=== PATIENT | male | born 1980 | race Caucasian/White ===

== ENCOUNTER 2019-06-23 09:58 | Inpatient (IN) | payer OTHER, SELFPAY ==
--- NOTE | 2019-06-23 10:57 | RAD ---
Exam: Left wrist 3 views: HISTORY: Injury Somewhat comminuted fairly markedly displaced vertically oriented fracture through the volar and radi al aspect of the distal radius extending intra-articularly with 0.5 cm of volar displacement. Small chip type fracture of the ulnar styloid process. In addition there is a chip type fracture through the base of the fifth metatarsal extending into the hamate fifth metatarsal joint. There is also a minimally displaced oblique or spiral fracture of the proximal fourth metatarsal shaft. Surgical clips overlie the lateral aspect of the carpal bones. These clips and distal radial fracture somewhat obscures the underlying scaphoid bone. IMPRESSION: Comminuted distal radial fracture with displacement and intra-articular extension. Fractures of the u lnar styloid process, base of the fifth metacarpal, and the fourth metacarpal shaft.
[2019-06-23 12:48] LABS: #Eosinphils 0.1 thou/uL (0.0-0.7); #Lymphocytes 2.7 thou/uL (1.20-3.40); #Monocytes 0.7 thou/uL (0.11-0.59); #Neutrophils 7.3 thou/uL (1.40-6.50); %Basophils 0.4 % (0.0-1.0); %Eosinophils 1.2 % (0.0-10.0); %Lymphocytes 25.1 % (21.0-51.0); %Monocytes 6.2 % (0.0-10.0); Hemoglobin 16.2 g/dL (14.0-18.0); Mean Corpuscular HGB CONC 35.3 g/dL (32.0-36.0); Mean Corpuscular Hemoglobin 31.9 pg (27.0-31.0); Mean Corpuscular Volume 90.2 fL (78.0-98.0); Mean Platelet Volume 9.3 fL (7.4-10.4); Platelet Count 243 thou/uL (130-400); RBC Distribution Width 11.8 % (11.5-14.5); Red Blood Cell (RBC) Count 5.08 mill/uL (4.70-6.10); White Blood Cell (WBC) Count 10.9 thou/uL (4.8-10.8)
[2019-06-23] MEDS ORDERED: Morphine 4 MG/ML VIAL ONE ×2 (12:54→15:57)
[2019-06-23 13:05] LABS: ALT (SGPT) 40 U/L (8-55); AST (SGOT) 21 U/L (5-34); Albumin 4.7 g/dL (3.5-5.0); Alkaline Phosphatase 56 U/L (40-110); Anion Gap 13 mmol/L (10-20); BUN (Urea Nitrogen) 13 mg/dL (8.9-20.6); Bilirubin, Total 0.4 mg/dL (0.2-1.2); Calc. Creatinine Clearance 0 mL/min (70-130); Calcium 10.2 mg/dL (7.8-10.44); Carbon Dioxide 25 mmol/L (22-29); Chloride 102 mmol/L (98-107); Estimated GFR-MDRD 73; Globulin 3.8 g/dL (2.4-3.5); Glucose 90 mg/dL (70-105); Potassium 4.1 mmol/L (3.5-5.1); Protein, Total 8.5 g/dL (6.0-8.3); Sodium 136 mmol/L (136-145)
[2019-06-23] MEDS ORDERED: Ketorolac Tromethamine 30 MG/ML VIAL ONE (14:10)
[2019-06-23 14:11] LABS: PTT 30.6 SEC (22.9-36.1)
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
[2019-06-23] MEDS ORDERED: Promethazine HCl 25 MG/ML VIAL IM PRN ×2 (14:39→21:46)
[2019-06-23] MEDS ORDERED: Morphine 4 MG/ML VIAL SLOW IVP PRN (14:39)
[2019-06-23] MEDS ORDERED: Dextrose 50% Abboject 50 ML SYRINGE SLOW IVP PRN (14:39)
[2019-06-23] MEDS ORDERED: Ondansetron PF 4 MG/2 ML Vial IVP PRN (14:39)
[2019-06-23] MEDS ORDERED: Dextrose 5% in Water 1,000 ML IV PRN (14:39)
[2019-06-23] MEDS ORDERED: hydrALAZINE 20 MG/ML VIAL SLOW IVP PRN (14:39)
[2019-06-23] MEDS ORDERED: Cyclobenzaprine 10 MG TAB PO PRN (15:14)
[2019-06-23] MEDS ORDERED: traMADol HCl 50 MG TAB PO PRN ×3 (15:14→21:46)
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
[2019-06-23] MEDS ORDERED: Bupivacaine PF 0.5% 30 ML VIAL ONE ×2 (17:13→21:23)
[2019-06-23] MEDS ORDERED: Sodium Chloride 0.9% 0 ML ONE (17:13)
[2019-06-23] MEDS ORDERED: Bacitracin Zinc Ointment 30 gm TUBE ONE ×2 (17:13→21:23)
[2019-06-23] MEDS ORDERED: Sodium Chloride 0.9% 10 ML ONE (21:23)
[2019-06-23] MEDS ORDERED: Midazolam HCl 2 mg/2 ml Vial ONE (21:38)
[2019-06-23] MEDS ORDERED: Fentanyl 100 MCG/2 ML VIAL ONE ×2 (21:38→22:04)
[2019-06-23] MEDS ORDERED: HYDROcodone/Acetaminophen 5/325 mg Tablet PO PRN (21:46)
[2019-06-23] MEDS ORDERED: Bisacodyl 10 MG SUPP PR PRN (21:46)
[2019-06-23] MEDS ORDERED: Fentanyl 100 MCG/2 ML VIAL SLOW IVP PRN (21:46)
[2019-06-23] MEDS ORDERED: Morphine 2 MG/ML SYRINGE IVP PRN (21:46)
[2019-06-23] MEDS ORDERED: Milk Of Magnesia 30 ML UDCUP PO PRN (21:46)
[2019-06-23] MEDS ORDERED: Meperidine HCl/PF 25 MG/ML VIAL IM PRN (21:51)
[2019-06-23] MEDS ORDERED: Ketorolac Tromethamine 30 MG/ML VIAL IVP PRN (21:51)
[2019-06-23] MEDS ORDERED: TETANUS AND DIPHTHERIA TOX/PF 0.5 ML DISP.SYRIN IM SCH (22:00)
[2019-06-23] MEDS ORDERED: Ibuprofen 800 MG TAB PO SCH (22:00)
[2019-06-23] MEDS ORDERED: Ketorolac Tromethamine 30 MG/ML VIAL IVP SCH (23:59)
[2019-06-24] MEDS ORDERED: Fentanyl 100 MCG/2 ML VIAL ONE (00:09)
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
[2019-06-24] MEDS ORDERED: HYDROmorphone 2 MG/ML VIAL SLOW IVP PRN (00:57)
[2019-06-24] MEDS ORDERED: Promethazine HCl 25 MG/ML VIAL IM PRN (00:57)
[2019-06-24] MEDS ORDERED: Morphine Sulfate 2 MG/ML SYRINGE SLOW IVP PRN (00:57)
[2019-06-24] MEDS ORDERED: Ketorolac Tromethamine 30 MG/ML VIAL IVP PRN (00:57)
[2019-06-24] MEDS ORDERED: Ondansetron HCl/PF 4 MG/2 ML Vial IVP PRN (00:57)
[2019-06-24] MEDS ORDERED: PACU-Morphine 4MG/ML VIAL SLOW IVP PRN (00:57)
[2019-06-24] MEDS ORDERED: Promethazine HCl 25 MG/ML VIAL SLOW IVP PRN (00:57)
[2019-06-24] MEDS ORDERED: Meperidine HCl/PF 25 MG/ML VIAL SLOW IVP PRN (00:57)
[2019-06-24] MEDS ORDERED: Vancomycin HCl 1 GM in Premix Bag 1 BAG IVPB SCH ×2 (02:15→09:00)
[2019-06-24] MEDS: Sodium Chloride 0.9% 1,000 ML IV SCH ×2 (02:45→06:18)
[2019-06-24 02:59] VITALS: BMI 28.5
[2019-06-24] MEDS: Vancomycin HCl 1.5 GM in Sodium Chloride 0.9% 250 ML 300 ML IVPB SCH ×2 (04:15→12:51)
[2019-06-24 04:44] LABS: Amphetamine Not Detected (NotDetected); Benzodiazepine Screen Not Detected (NotDetected); Cocaine Metabolite Screen Not Detected (NotDetected); Medtox Reader # READER 4; Methadone Not Detected (NotDetected); Methamphetamine Not Detected (NotDetected); Opiate Screen Detected (NotDetected); Phencyclidine (PCP) Not Detected (NotDetected); THC/Cannabinoid Screen Not Detected (NotDetected); Tricyclic Screen Not Detected (NotDetected)
[2019-06-24 04:45] LABS: Barbiturates Screen Not Detected (NotDetected); Medtox Control Line Valid? VALID (VALID); Oxycodone Screen Not Detected (NotDetected)
[2019-06-24] MEDS: Acetaminophen 500 MG TAB PO SCH ×2 (06:17→06:49)
[2019-06-24] MEDS: Gabapentin 300 MG CAP PO SCH ×2 (06:17→10:37)
[2019-06-24] MEDS: Famotidine 20 MG TAB PO SCH ×2 (06:17→10:37)
[2019-06-24] MEDS: Senokot S 8.6-50 MG TAB PO SCH ×2 (06:18→10:37)
--- NOTE | 2019-06-24 07:34 | RAD ---
Intraoperative imaging left breast: 06/23/2019 HISTORY: Injury, trauma, surgery FINDINGS: Images demonstrate placement of screws and pins treating the distal radial fracture. Postop erative clips are noted overlying the proximal and distal carpal row laterally. There is a fracture at the tip of the ulnar styloid. There is a fracture involving the base of the fourth and fifth metac arpals. IMPRESSION: Intraoperative imaging as above.
--- NOTE | 2019-06-24 07:57 | RAD ---
LEFT FINGERS 5 VIEWS: HISTORY: Intraoperative films. FINDINGS: This is a series of films that show screw placement across the base of the 5th and the shaft of the 4 th metacarpals. Postop changes of the distal radius and clips over the scaphoid and trapezium are al so noted. IMPRESSION: Postoperative changes of the hand and wrist. POS: DOMITILA
[2019-06-24] MEDS ORDERED: Senokot S 8.6-50 MG TAB PO SCH (09:00)
[2019-06-24] MEDS ORDERED: Famotidine 20 MG TAB PO SCH (09:00)
[2019-06-24] MEDS ORDERED: Gabapentin 300 MG CAP PO SCH (09:00)
[2019-06-24] MEDS ORDERED: Aspirin 81 mg Enteric Coated Tablet PO SCH (09:00)
[2019-06-24] MEDS ORDERED: Polyethylene Glycol 3350 17 GM Packet PO SCH ×2 (09:00)
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
[2019-06-24 11:29] VITALS: BP 111/60; TEMP 98.9
[2019-06-24] MEDS ORDERED: Acetaminophen 500 MG TAB PO SCH (12:00)
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
[2019-06-29] MEDS ORDERED: Ibuprofen 800 MG TAB PO SCH (06:00)
== END 2019-06-24 15:21 | disposition home or self-care (01) | DRG 511 ==
LOC: ERS 09:58 → SDC 19:04 → 3SE 21:46
PROVIDERS: ADMIT Surgery; ATTEND Surgery
PROC: 0PSQ04Z Reposition Left Metacarpal with Internal Fixation Device, Open Approach (ICD-10-PCS; principal; 2019-06-23)
PROC: 0PSJ04Z Reposition Left Radius with Internal Fixation Device, Open Approach (ICD-10-PCS; 2019-06-23)
DX: S62.317A Displaced fracture of base of fifth metacarpal bone, left hand, initial encounter for closed fracture (principal); S52.512A Displaced fracture of left radial styloid process, initial encounter for closed fracture; S52.612A Displaced fracture of left ulna styloid process, initial encounter for closed fracture; S62.325A Displaced fracture of shaft of fourth metacarpal bone, left hand, initial encounter for closed fracture; F41.9 Anxiety disorder, unspecified; F32.9 Major depressive disorder, single episode, unspecified; K21.9 Gastro-esophageal reflux disease without esophagitis; F17.210 Nicotine dependence, cigarettes, uncomplicated; Z88.8 Allergy status to other drugs, medicaments and biological substances; Z90.89 Acquired absence of other organs; V69.9XXA Occupant (driver) (passenger) of heavy transport vehicle injured in unspecified traffic accident, initial encounter
CPT/HCPCS: 25605; 26605; 36415; 71045; 72040; 76000; 80053; 80306; 80307; 85025; 85610; 85730; 86850; 86900; 86901; 93005; 94760; 96361; 96374; 96375; 96376; C1713; G0390; J0131; J1885; J2250; J2270; J3010; J3370; J3490; J7050; S0020

== ENCOUNTER 2019-12-03 11:20 | Outpatient (CLI) | payer OTHER ==
--- NOTE | 2019-12-03 15:50 | MRI ---
MRI OF LEFT WRIST PERFORMED WITHOUT CONTRAST ENHANCEMENT: HISTORY: Patient had wrist surgery in May of 2019 and has been having pain since the time of surgery. FINDINGS: There is artifact related to pin and screw placement which substantially degrades image detail. Shayy fact is particularly pronounced around the region of the distal radius with screw placement in this r egion. On these views, there appears to be an ulna plus variant. I am not certain how much of this is related to the positioning. The triangular fibrocartilage is difficult to assess, but I feel it i s most likely intact. Surgical anchors are seen within the scaphoid and there is artifact near the trapezium. The scapholu adam and lunotriquetral joints are unremarkable. I do not see any definite ligamentous injury. Carpal tunnel region is normal. The extensor tendons are somewhat difficult to assess at the level o f the radius. The ERCB and ERCL tendons appear slightly thickened. Some minimal tenosynovitis beltran e and some minimal edema change and what appears to be some scarring around these tendons. There is what may be a small bony fragment from the dorsal side of the scaphoid in this region, again difficul t to assess. I am not certain if CT would be helpful in assessment of this if patient's pain is spe cifically related to this region. Postop changes of the metacarpal regions are also incidentally seen incompletely imaged on this exam. IMPRESSION: 1. Extensive postop change degrades image quality. Screw placement in the distal radius related to fixation of fracture degrades the imaging quality. I believe the scapholunate and lunotriquetral lig aments are intact. On some of these images, there appears to be an ulnar plus variant. I believe th is may just be more related to positioning. Triangular fibrocartilage is difficult to assess, but on some of these images I feel is probably intact. 2. Suggestion of some slight thickening to the extensor carpi radialis brevis and extensor carpi rad ialis longus tendons at the level of the distal radius and as they pass over the dorsal side of the r egion of the scaphoid. On some of these images, there is a suggestion there may be a small avulsion fracture off the dorsal side of the more proximal aspect of the scaphoid. There are some trace tenos ynovitis changes and some soft tissue edema changes adjacent to the extensor carpi radialis brevis an d extensor carpi radialis longus tendons. POS: C
== END 2019-12-03 11:21 | disposition home or self-care (01) ==
LOC: SCSMRI 11:20
PROVIDERS: ATTEND Orthopaedic Surgery Hand Surgery
DX: S69.82XA Other specified injuries of left wrist, hand and finger(s), initial encounter (principal); Z98.890 Other specified postprocedural states

== ENCOUNTER 2019-12-23 12:12 | Outpatient (CLI) | payer OTHER ==
--- NOTE | 2019-12-23 14:37 | CT ---
EXAM: LEFT WRIST CT SCAN WITHOUT IV CONTRAST: 12/23/19 HISTORY: Follow-up fractures and follow-up postoperative changes. COMPARISON: Prior MRI, 12/03/2019 and wrist plain film examination 06/23/2019. Three internal fixation pins and one internal fixation screw transversely stabilize and fixate the di stal radial epiphysis. The previously noted displaced somewhat comminuted radial fracture has marked ly improved in position and alignment with evidence for some healing. There appears to be a healed fr acture of the tip of the ulnar styloid process as well as healed fractures involving the proximal fou rth and fifth metacarpals. There is a circumscribed 0.3 x 0.4 cm diameter ossific focus on the radial side of the distal radial styloid process which does not appear to involve the navicular bone. I fee l this is probably a displaced fracture from the previously noted comminuted radial fracture that has not reunited. There is a small bony projection also noted off the distal end of the radial styloid process which ma y still be attached to the distal radial styloid and represent at least partially attached bony fragm ent. There is some heterogeneous attenuation within the scaphoid bone with some associated deformity but no evidence for an acute fracture. Scapholunate and lunatotriquetral joint regions appear intact. No evidence for new fractures. There are in addition, two other very small, one approximates 1 mm in diameter, the second one measur es approximately 1 x 2 mm in diameter, small circumscribed bony densities on the radial side of the d istal scaphoid bone near the triscaphe joint. These also appear to be old tiny circumscribed ossific densities possibly residual tiny chip type fractures. IMPRESSION: Evidence for healing distal radial and proximal fourth and fifth metatarsal fractures. No evidence fo r acute fracture. Minimal deformity of the scaphoid bone, evidence for old injury but again, no acute fracture or dislocation. Several small ossific foci which are circumscribed and noted on the radial side of the distal radial styloid process as well as on the radial side of the distal scaphoid bone n ear the triscaphe joint but these do not have the appearance of acute chip type fractures. The two very tiny areas of ossification are best seen on axial image 37 and the two slightly larger a reas of circumscribed ossification are best seen on axial 41. POS: RRE
== END 2019-12-23 12:13 | disposition home or self-care (01) ==
LOC: SCSCT 12:12
PROVIDERS: ATTEND Orthopaedic Surgery Hand Surgery
DX: S62.035D Nondisplaced fracture of proximal third of navicular [scaphoid] bone of left wrist, subsequent encounter for fracture with routine healing (principal); S52.502D Unspecified fracture of the lower end of left radius, subsequent encounter for closed fracture with routine healing; S62.335D Displaced fracture of neck of fourth metacarpal bone, left hand, subsequent encounter for fracture with routine healing; S62.337D Displaced fracture of neck of fifth metacarpal bone, left hand, subsequent encounter for fracture with routine healing